=== PATIENT | male | born 1945 | race Caucasian/White ===

== ENCOUNTER → 2019-05-12 | Outpatient (CLI) | payer MEDICARE ==
--- NOTE | 2019-05-12 09:28 | US ---
EXAMINATION TYPE: US duplex aorta DATE OF EXAM: 05/12/2019 COMPARISON: NONE CLINICAL HISTORY: Z87.891 Personal Hx of tobacco use. HX of smoking. EXAM MEASUREMENTS: Abdominal Aorta: Proximal: 2.6 cm Mid: 1.8 cm Distal: 1.4 cm Bifurcation: 1.4cm 1.6 cm IMPRESSION: No evidence for abdominal aortic aneurysm.
== END | disposition home or self-care (01) ==
LOC: RADUSWWP 06:48
PROVIDERS: ATTEND Family Medicine
DX: Z09 Encounter for follow-up examination after completed treatment for conditions other than malignant neoplasm (principal); Z87.891 Personal history of nicotine dependence
CPT/HCPCS: 93979

== ENCOUNTER 2023-10-26 08:26 | Day surgery (SDC) | payer MEDICARE ==
[~2023-10-26 08:26] MED LIST: LACTATED RINGERS 1,000 ML IV SCH; LIDOCAINE 1% (10MG/ML) FOR IV START INTRADERMA PRN
[2023-10-26] MEDS: LACTATED RINGERS 1,000 ML IV ONE (09:42)
[2023-10-26] MEDS ORDERED: MIDAZOLAM 2 MG/2 ML VIAL ONE (10:01)
[2023-10-26] MEDS ORDERED: PROPOFOL 10 MG/ML 20 ML VIAL IV ONE (10:01)
[2023-10-26] MEDS ORDERED: fentaNYL (PF) 50 MCG/ML 2 ML AMP ONE (10:01)
--- NOTE | 2023-10-26 10:21 | P.PCN ---
Date of Procedure: 10/26/23 Procedure(s) Performed: BRIEF HISTORY: Patient is a 78-year-old pleasant male scheduled for an elective colonoscopy as a part of screening for colon cancer. PROCEDURE PERFORMED: Colonoscopy with biopsy. PREOPERATIVE DIAGNOSIS: Screening for colon cancer. IV sedation per Anesthesia. PROCEDURE: After informed consent was obtained, the patient, was brought into the endoscopy unit. IV sedation was administered by Anesthesia under continuous monitoring. Digital rectal examination was normal. Initially the Olympus CF-160 flexible video colonoscope was then inserted in the rectum, gradually advanced into the cecum without any difficulty. Careful examination was performed as the scope was gradually being withdrawn. Ileocecal valve and the appendiceal orifice were visualized and appeared normal. Prep was excellent. Mucosa of the cecum, and a 4 mm sessile polyp removed by cold biopsy. Rest of the ascending colon, transverse colon, appeared normal. The descending colon there was a 3 mm polyp removed by cold biopsy. Scattered left-sided diverticulosis seen. Rest of the descending colon, sigmoid colon, and rectum appeared normal. Retroflexion was performed in the rectum and no lesions were seen. The patient tolerated the procedure well. IMPRESSION: 4 mm cecal polyp status post cold biopsy 3 mm descending colon polyp status post removal by cold biopsy Scattered left sided diverticulosis Recommendations: Findings of this examination were discussed with the patient as well as his family. He was advised to follow with the biopsy results. Recommend repeat colonoscopy in 5 years based on his overall medical condition.
[2023-10-26 10:22] VITALS: RESP 16; TEMP 97.2
[2023-10-26 10:56] VITALS: BP 135/68; PULSE 65
== END 2023-10-26 11:03 | disposition home or self-care (01) ==
LOC: ORWHC2ENDO 08:26
PROVIDERS: ATTEND Internal Medicine Gastroenterology
DX: Z12.11 Encounter for screening for malignant neoplasm of colon (principal); D12.0 Benign neoplasm of cecum; D12.4 Benign neoplasm of descending colon; K57.30 Diverticulosis of large intestine without perforation or abscess without bleeding; I10 Essential (primary) hypertension; E78.5 Hyperlipidemia, unspecified; K21.9 Gastro-esophageal reflux disease without esophagitis; Z87.891 Personal history of nicotine dependence; Z79.899 Other long term (current) drug therapy
CPT/HCPCS: 88305; 45380; J2250; J3010; J2704

== ENCOUNTER → 2023-12-14 | Outpatient (CLI) | payer MEDICARE, OTHER ==
--- NOTE | 2023-12-14 18:13 | US ---
EXAMINATION TYPE: US carotid duplex BILAT DATE OF EXAM: 12/14/2023 COMPARISON: NONE CLINICAL INDICATION: Male, 78 years old with history of I65.23 CAROTID STENOSIS; screening carotid sh oed plaque, no symptoms, no h/o stroke TECHNIQUE: Carotid duplex ultrasound examination. Indirect Doppler criteria was utilized. FINDINGS: EXAM MEASUREMENTS: RIGHT: Peak Systolic Velocity (PSV) cm/sec ----- Right CCA: 52.4 ----- Right ICA: 91.9 ----- Right ECA: 94.1 ICA/CCA ratio: 1.8 RIGHT: End Diastole cm/sec ----- Right CCA: 11.1 ----- Right ICA: 34.8 ----- Right ECA: 10.6 LEFT: Peak Systolic Velocity (PSV) cm/sec ----- Left CCA: 57.2 ----- Left ICA: 156.3 ----- Left ECA: 95.2 ICA/CCA ratio: 2.7 LEFT: End Diastole cm/sec ----- Left CCA: 13.7 ----- Left ICA: 51.8 ----- Left ECA: 12.8 VERTEBRALS (direction of flow): Right Vertebral: Antegrade Left Vertebral: Antegrade Rhythm: Normal [employer] NOTES: Heterogeneous plaque on the left with stenosis noted at left proximal ICA IMPRESSION: 1. Moderate 50-69% proximal left internal carotid artery stenosis based on color and grayscale imagin g as well as peak systolic velocities and ratios. There is significant calcified plaque in the caroti d bifurcations. 2. Mild eccentric partially calcified plaque in the right carotid bifurcation resulting in mild steno sis based on color and grayscale imaging and peak systolic velocities and ratios. Criteria for Assigning % of Stenosis / Diameter reduction (Estimation based on the indirect measurements of the internal carotid artery velocities (ICA PSV). 1. Normal (no stenosis)=ICA PSV < 125 cm/s: ratio < 2.0: ICA EDV<40 cm/s. 2. Less than 50% stenosis=ICA PSV < 125 cm/s: ratio < 2.0: ICA EDV<40 cm/s. 3. 50 to 69% stenosis=ICA PSV of 125 to 230 cm/s: ration 2.0 ? 4.0: ICA EDV 40-100 cm/s. 4. Greater than 70% stenosis to near occlusion= ICA PSV > 230 cm/s: ratio > 4.0: ICA EDV > 100 cm/s. 5. Near occlusion= ICA PSV velocities may be low or undetectable: variable ratio and ICA EDV. 6. Total occlusion=unable to detect flow.
== END | disposition home or self-care (01) ==
LOC: RADUSWWP 07:21
PROVIDERS: ATTEND Family Medicine
DX: I65.23 Occlusion and stenosis of bilateral carotid arteries (principal)
CPT/HCPCS: 93880

== ENCOUNTER → 2023-12-16 | Outpatient (CLI) | payer MEDICARE ==
--- NOTE | 2023-12-17 21:58 | MR ---
EXAMINATION TYPE: MR knee LT wo con DATE OF EXAM: 12/16/2023 COMPARISON: NONE HISTORY: Left knee pain and swelling x3 years. Foot drop. Occlusion and stenosis of. Attention to per lou nerve. TECHNIQUE: Multiplanar, multisequence images of the knee is performed without IV contrast. FINDINGS: MEDIAL MENISCUS: Oblique increased signal posterior horn extends to inferior articular surface. LATERAL MENISCUS: Anterior and posterior horns are intact without tear. CRUCIATE LIGAMENTS: The posterior cruciate ligaments is intact and unremarkable. Some increased signa l fraying of fibers in the distal ACL is present. COLLATERAL LIGAMENTS: The medial collateral ligament and lateral collateral ligament complex are inta ct and unremarkable. EXTENSOR MECHANISM: Visualized quadriceps and patellar tendons are intact. EFFUSION: No significant suprapatellar joint effusion. POPLITEAL CYST: No popliteal/hull cyst. TRICOMPARTMENT SPACES: Mild tricompartment spurring. Mild to moderate narrowing patellofemoral compar tment. Mild narrowing medial and lateral tibiofemoral compartment. 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 No full-thickness loss is seen. BONE MARROW SIGNAL: Areas of subchondral cystic change throughout the proximal tibia greatest involvi ng the posterior medial aspect extending posteriorly with some increased signal in the tendon attachm ent at this level seen best sagittal image 26 OTHER: Visualized portion of the peroneal nerve lateral to the fibular head and neck extending anteri curt and medially is grossly unremarkable. IMPRESSION: 1. Oblique full thickness tear posterior horn of medial meniscus. 2. 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 3. Subchondral cystic change with adjacent cystic change posterior medial distal femur and partial te aring of the adjacent distal tendon at this level. 4. Visualized portion of the common peroneal nerve is unremarkable.
== END | disposition home or self-care (01) ==
LOC: RADMRIMAIN 15:54
PROVIDERS: ATTEND Family Medicine
DX: S83.242A Other tear of medial meniscus, current injury, left knee, initial encounter (principal); M21.372 Foot drop, left foot